=== PATIENT | male | born 1990 | race Caucasian/White ===

== ENCOUNTER 2023-12-22 21:59 | Emergency (ER) | payer OTHER ==
[2023-12-23] MEDS ORDERED: Apixaban 5 MG TAB ONE (01:34)
[2023-12-23] MEDS ORDERED: HYDROcodone/Acetaminophen 5/325 mg Tablet ONE (01:34)
== END 2023-12-23 01:44 | disposition home or self-care (01) ==
LOC: ERS 21:59 → EDSEX 21:59 → ERS 12-23 01:44
DX: I82.402 Acute embolism and thrombosis of unspecified deep veins of left lower extremity (principal); E11.9 Type 2 diabetes mellitus without complications; I10 Essential (primary) hypertension